=== PATIENT | female | born 1960 | race Caucasian/White ===

== ENCOUNTER 2016-08-12 04:31 | Emergency (ER) | payer OTHER ==
[2016-08-12 04:39] VITALS: RESP 20; TEMP 97.7
--- NOTE | 2016-08-12 05:13 | CPEKG ---
Heart Rate: 65 RR Interval: 923 P-R Interval: 160 QRSD Interval: 86 QT Interval: 396 QTC Interval: 412 P Ll[place]: 67 QRS [place]: -22 T Wave [place]: 21 EKG Severity - OTHERWISE NORMAL ECG - EKG Impression: SINUS RHYTHM EKG Impression: BORDERLINE LEFT AXIS DEVIATION Electronically Signed By: Gracy Aly 12-Aug-2016 06:07:12
[2016-08-12 05:28] LABS: % IMMATURE GRANULYOCYTES 0.4 % (0.0-1.1); ABSOLUTE IMMATURE GRANULOCYTES 0.03 10^3/uL (0.00-0.10); ADD DIFF? NO; ADD MORPH? NO; ADD SCAN? NO; ATYPICAL LYMPHOCYTE FLAG 10 (0-99); FRAGMENT RBC FLAG 0 (0-99); HEMATOCRIT 42.8 % (38.0-47.0); HEMOGLOBIN 14.8 g/dL (12.6-16.3); LEFT SHIFT FLG 0 (0-99); LIPEMIA HEMOLYSIS FLAG 90 (0-99); MEAN CELL HEMOGLOBIN 30.4 pg (27.9-34.1); MEAN CELL HEMOGLOBIN CONCENTR. 34.6 g/dL (32.4-36.7); MEAN CELL VOLUME 87.9 fL (81.5-99.8); MEAN PLATELET VOLUME 9.7 fL (8.7-11.7); PLATELET CLUMPS FLAG 0 (0-99); PLATELET COUNT 285 10^3/uL (150-400); RED BLOOD CELL COUNT 4.87 10^6/uL (4.18-5.33); RED CELL DISTRIBUTION WIDTH 12.5 % (11.5-15.2)
[2016-08-12 05:40] LABS: ANION GAP 11 mEq/L (8-16); CALCIUM 9.4 mg/dL (8.5-10.4); CARBON DIOXIDE 21 mEq/l (22-31); CHLORIDE 108 mEq/L (97-110); CREATININE 0.9 mg/dL (0.6-1.0); GLOMERULAR FILTRATION RATE > 60; GLUCOSE 97 mg/dL (70-100); POTASSIUM 4.4 mEq/L (3.5-5.2); SODIUM 140 mEq/L (134-144)
[2016-08-12 05:52] LABS: TROPONIN I < 0.012 ng/mL (0-0.034)
--- NOTE | 2016-08-12 06:02 | EDPHY ---
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 Seen by Provider: 08/12/16 04:48 Source: Patient - Personal History LMP (Females 10-55): 1-7 Days Ago Current Tetanus/Diphtheria Vaccine: Yes Current Tetanus Diphtheria and Acellular Pertussis (TDAP): Yes - Medical/Surgical History Hx Asthma: No Hx Chronic Respiratory Disease: No Hx Diabetes: No Hx Cardiac Disease: No Hx Renal Disease: No Hx Cirrhosis: No Hx Alcoholism: No Hx HIV/AIDS: No Hx Splenectomy or Spleen Trauma: No Other PMH: AV node reentry dysrhythmia (Afib?), hypercholesterolemia - Social History Smoking Status: Never smoked Constitutional: Initial Vital Signs Temperature (C) 36.5 C 08/12/16 04:33 Heart Rate 80 08/12/16 04:33 Respiratory Rate 20 08/12/16 04:33 Blood Pressure 142/113 H 08/12/16 04:33 O2 Sat (%) 99 08/12/16 04:33 O2 Delivery Mode Room Air Allergies/Adverse Reactions: Sulfa (Sulfonamide Antibiotics) Allergy (Verified 08/12/16 04:39) Home Medications: Medication Instructions Recorded Prozac 10 MG (*) 08/12/16 Zocor 08/12/16 Medical Decision Making - Diagnostics EKG Interpretation: EKG: Complete interpretation has been separately recorded in the [facility] archive. Summary impression: Normal sinus rhythm, no ST segment changes Differential Diagnosis: This is a 55-year-old female with history of AV tayla reentry tachycardia, presents with an episode which began with tooth pain, then developed lightheadedness, nausea, then developed tingling in her hands. Differential diagnosis includes ACS, hypotension, hypovolemia, electrolyte disturbance. In the emergency room, the patient was monitored on the cardiac rehabilitation specialist without any events. EKG was unremarkable. Labs including troponin were normal. Her symptoms completely resolved. It could be her tooth pain caused a vasovagal sort of event which led to hyperventilating perhaps. I have instructed her to rest over the next 1 day. We have discussed return precautions, she will be discharged. - Data Points Laboratory Results: Laboratory Results 08/12/16 05:08 08/12/16 05:08 Departure - Departure Disposition: Home, Routine, Self-Care Clinical Impression: Paresthesia Condition: Good Instructions: Paresthesia (ED) Additional Instructions: Please return to the emergency room if you're worse in any way. Your testing today all looked normal so it is unclear what is causing your symptoms. Referrals: HARMAN FRANCOIS [Other] - As per Instructions
[2016-08-12 06:10] VITALS: BP 104/72; PULSE 75; O2SAT 98
== END 2016-08-12 06:13 | disposition home or self-care (01) ==
DX: R20.2 Paresthesia of skin (principal)